=== PATIENT | female | born 1995 | race Two or more races ===

== ENCOUNTER 2021-07-22 21:58 | Emergency (ER) | payer OTHER ==
[~2021-07-22] VITALS: Ht 175.3 cm; Wt 83.9 kg
[2021-07-22] MEDS ORDERED: KETOROLAC TROMETH 60MG/2ML VIAL IM ONE (22:30)
[2021-07-23 00:13] VITALS: BP 132/86
== END 2021-07-23 02:48 | disposition home or self-care (01) ==
LOC: ER 22:02
DX: G43.909 Migraine, unspecified, not intractable, without status migrainosus (principal); M54.2 Cervicalgia; R11.0 Nausea; R42 Dizziness and giddiness
CPT/HCPCS: 96372; 99283; J1885